=== PATIENT | female | born 2000 | race Caucasian/White ===

== ENCOUNTER 2020-04-25 09:41 | Emergency (ER) | payer OTHER ==
[~2020-04-25] VITALS: Ht 170.2 cm; Wt 68.6 kg
[2020-04-25 10:03] VITALS: BP 118/79; TEMP 98
[2020-04-25 12:11] VITALS: PULSE 70
== END 2020-04-25 12:05 | disposition home or self-care (01) ==
LOC: COL.ER 09:41
DX: S60.012A Contusion of left thumb without damage to nail, initial encounter (principal); W23.1XXA Caught, crushed, jammed, or pinched between stationary objects, initial encounter